=== PATIENT | male | born 1960 | race Caucasian/White ===

== ENCOUNTER 2019-07-06 07:56 | Inpatient (IN) ==
--- NOTE | 2019-06-11 14:01 | PAT Medication Instructions ---
Medication Instructions Date of Service June 11, 2019 Home Medications allopurinol 100 mg PO QPM 06/05/19 [History Confirmed 06/05/19] aspirin [Aspir-Low] 81 mg PO QPM 06/05/19 [History Confirmed 06/05/19] levothyroxine 125 mcg PO QPM 06/05/19 [History Confirmed 06/05/19] meloxicam 15 mg PO QPM 06/05/19 [History Confirmed 06/05/19] rosuvastatin [Crestor] 10 mg PO QPM 06/05/19 [History Confirmed 06/05/19] ASK your surgeon for instructions meloxicam 15 mg PO QPM 06/05/19 [History Confirmed 06/05/19] Take evening before surgery allopurinol 100 mg PO QPM 06/05/19 [History Confirmed 06/05/19] aspirin [Aspir-Low] 81 mg PO QPM 06/05/19 [History Confirmed 06/05/19] levothyroxine 125 mcg PO QPM 06/05/19 [History Confirmed 06/05/19] rosuvastatin [Crestor] 10 mg PO QPM 06/05/19 [History Confirmed 06/05/19] Other Notes If you have any questions please call us at [phone] or [phone] or [phone] or [phone]
--- NOTE | 2019-06-12 08:37 | Anesthesiology Consultation ---
Date of Service June 12, 2019 Assessment & Plan (1) Encounter for pre-operative examination: Chart Review Chart Review: Acceptable Risk for Surgery, Pending: Refer to Additional Notes / Consult section (pending preop testing (labs, EKG, CXR)) and Patient seen in Pre Admission Testing Teaching & Discussion Pre-Anesthesia Teaching/Discussion Notes: Instructed NPO after midnight before surgery,except medications with 15 cc of water. Medication instructions provided according to the PAT guidelines. History Surgery Operation Date: 07/06/19 08:50 Proposed Procedures p Left Total Knee Replacement - Rubén Young MD Height/Weight Height: 5 ft 8 in Weight: 137.8 kg Allergies Allergy/AdvReac Type Severity Reaction Status Date / Time cephalexin [From Keflex] Allergy Intermediate ITCHING Verified 06/12/19 08:40 (FEET) shellfish derived Allergy Intermediate WATERY Verified 06/05/19 10:39 EYES/ITCHING adhesive tape Allergy Mild SKIN Verified 06/05/19 10:38 IRRITATION Medications Home Medications Medication Instructions Recorded Confirmed Last Taken allopurinol 100 mg PO QPM 06/05/19 06/05/19 Unknown aspirin [Aspir-Low] 81 mg PO QPM 06/05/19 06/05/19 Unknown levothyroxine 125 mcg PO QPM 06/05/19 06/05/19 Unknown meloxicam 15 mg PO QPM 06/05/19 06/05/19 Unknown rosuvastatin [Crestor] 10 mg PO QPM 06/05/19 06/05/19 Unknown Past Medical History Medical History GERD (gastroesophageal reflux disease) controlled Gout History of diverticulitis 15+ years ago s/p bowel resection/colostomy with subsequent reversal History of high blood pressure previously on oral antihypertensives- medications since discontinued as BP's remained controlled off medications after lifestyle modifications (PCP/patient closely monitoring) Hyperlipidemia Hypothyroidism Morbid obesity Osteoarthritis Sleep apnea no device Exercise / Class Metabolic Activity III < 4 Walking/Shop/Light housework (one flight of stairs (no chest pain/no sob)) Past Family History Family History Father Family history of diabetes mellitus Past Surgical History Surgical History History of bowel resection WITH COLOSTOMY History of colostomy reversal History of herniorrhaphy RT/LEFT INGUINAL HERNIA History of tooth extraction Past Anesthesia History No Hx of Anesthesia Complications and No Family Hx of Anesthesia Complications History of PONV No Hx of PONV and No Hx of Motion Sickness Social History Smoking Status: Former smoker tobacco type: cigarettes Do You Dip or Chew Tobacco: No Smoking End Date: QUIT AT AGE 26 Hx Alcohol Use: Yes Alcohol type: beer alcohol intake frequency: a few times a month Hx Substance Use: No substance use type: does not use Review of Systems Reflux controlled. Patient denies chest pain, shortness of breath, dyspnea on exertion, cough, wheezing, palpitations. Physical Exam Vital Signs VITALS BP 153/91- Patient advised to followup with PCP regarding elevated BP. P 67 TEMP 98.2 SP02 97%RA RESP 20 PHYSICAL Full neck and c-spine range of motion. Full TMJ range of motion. TMD 4 finger breaths Mallampati Score 3 Dentition: missing sides/molars Lungs: clear throughout to auscultation Cardiac: regular rate and rhythm, no murmurs noted Spine: normal Carotid arteries: negative bruit Extremities: no edema Trimmed garber Short, thick neck Testing Laboratory Results 06/12/19 08:50 06/12/19 08:50 PT 11.1 Seconds (9.0-12.0) 06/12/19 08:50 INR 1.1 (0.9-1.1) 06/12/19 08:50 APTT 24.9 Seconds (21.0-31.0) 06/12/19 08:50 Blood Type O Positive 06/12/19 08:50 Antibody Screen NEGATIVE 06/12/19 08:50 Electrocardiogram Date: 06/12/19 Findings: + NSR @ (at69) and + RBBB Chest X-Ray Date: 06/12/19 Findings: + NAD
--- NOTE | 2019-06-12 09:20 | XRay Report ---
XR chest Pre-admission PA/Lat CLINICAL HISTORY: Preoperative chest COMPARISON STUDY: No previous studies for comparison. FINDINGS: The heart is at the upper limits of normal in size. There is no failure. There is no focal pulmonary consolidation. There are no pleural effusions. Degenerative changes are present within the dorsal spine.[ IMPRESSION: No active disease in the chest. Electronically signed by: Nickolas Leos M.D. 06/12/2019 9:18 AM
[2019-06-12 10:10] LABS: Basophils # (auto) 0.05 K/uL (0-0.2); Basophils % (auto) 0.6 %; Eosinophils # (auto) 0.97 K/uL (0-0.5); Eosinophils % (auto) 11.2 %; Hematocrit (blood only) 44.9 % (42-52); Hemoglobin 15.7 g/dL (14.0-18.0); Immature Granulocytes # (auto) 0.02 K/uL (0.00-0.02); Immature Granulocytes % (auto) 0.2 %; Lymphocytes # (auto) 2.58 K/uL (1.2-3.4); Lymphocytes % (auto) 29.9 %; Mean Corpuscular Volume 91.6 fL (80-100); Mean Platelet Volume 10.4 fL (7.4-10.4); Monocytes # (auto) 0.79 K/uL (0.11-0.59); Monocytes % (auto) 9.1 %; Neutrophils # (auto) 4.23 K/uL (1.4-6.5); Platelet Count 256 K/uL (130-400); RDW Coefficient of Variation 13.4 % (11.5-14.5); White Blood Count 8.64 K/uL (4.8-10.8)
[2019-06-12 10:17] LABS: BUN Creatinine Ratio 15.7 (10-20); Calcium 9.5 mg/dl (8.5-10.1); Creatinine Clr Calc Pharmacy 122.8 ml/min; Est GFR (African American) 108.7; Est GFR (Non-African American) 93.8; Potassium 4.4 mmol/L (3.5-5.1)
[2019-06-12 10:19] LABS: INR 1.1 (0.9-1.1); Partial Thromboplastin Ratio 0.9; Partial Thromboplastin Time 24.9 Seconds (21.0-31.0); Prothrombin Time 11.1 Seconds (9.0-12.0)
--- NOTE | 2019-06-29 13:39 | History and Physical Report ---
DATE OF ADMISSION: 07/06/2019 CHIEF COMPLAINT: Left knee pain and discomfort. HISTORY OF PRESENT ILLNESS: The patient is a 58-year-old gentleman from [place] who is referred for treatment and specifically knee replacement of his left knee. He has got a long history of left knee pain and discomfort that has gradually gotten worse over the past 5 years. He describes most of the pain medial, but some global pain. 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 He says he has got constant pain. It gets worse at the end of days. He takes anti-inflammatories as well as Tylenol with minimal relief. He would like to have his left knee fixed. PAST MEDICAL HISTORY: 1. Elevated cholesterol. 2. Sleep apnea. 3. Obesity with a BMI of 46. 4. Gastroesophageal reflux disease. 5. Hypothyroidism. PAST SURGICAL HISTORY: Includes: 1. Herniorrhaphy. 2. Colostomy and reversal for diverticulitis. ALLERGIES: ADHESIVE, ALCOHOL AND FLAGYL. CURRENT MEDICINES: Include: 1. Levothyroxine 125 mcg a day. 2. Allopurinol 100 mg a day. 3. Meloxicam 15 mg a day. 4. Rosuvastatin 10 mg a day. 5. Aspirin 81 mg a day. SOCIAL HISTORY: A 58-year-old male. He works as a billing supervisor. Does a lot of standing. He is . One drink per week. Two children. FAMILY HISTORY: Noncontributory. REVIEW OF HISTORY: Negative for diabetes, neurologic problem, vascular problems or bleeding disorders. Denies any chest pain or shortness of breath. No history of DVT or PE. PHYSICAL EXAMINATION: GENERAL: Shows a pleasant, large middle-aged male. Looks to be in pretty good health. HEENT: Benign. NECK: Supple, no lymphadenopathy. LUNGS: Clear to auscultation. HEART: Has a regular rate and rhythm. ABDOMEN: Soft, nontender, nondistended. EXTREMITIES: Grossly neurovascularly intact except as follows: Examination of the left lower extremity reveals the patient walks with bit of a limp. He has got slight varus alignment to his knee. He has got bony hypertrophy medially. He is tender over the medial joint line. Small knee effusion. Range of motion is 5 degrees short of full extension and 25 degrees of flexion. There is no instability. He has got no pain with hip motion. He is neurovascularly intact. X-RAYS: X-rays of the left knee are reviewed. It shows advanced medial compartment DJD. He has got complete loss of his medial joint space. He has got subchondral sclerosis. A little bit of tibial femoral subluxation. ASSESSMENT: A 58-year-old fairly large gentleman with advanced left knee degenerative joint disease. He has failed conservative treatment and would like to have his left knee replaced. PLAN: We are going to take him to the operating room and do a left total knee replacement. The risks and benefits of this procedure were explained to the patient including but not limited to DVT, PE, , infection, neurological injury, vascular injury, bleeding problem, pain, limited range of motion, stiffness, failure to relieve symptoms, incomplete relief of symptoms, need for further surgery in the future, etc. The patient understands and desires to proceed. Informed consent was obtained. As far as discharge plans, he is planning to be discharged home using home nursing agency.
[~2019-07-06 07:56] MED LIST: ACETAMINOPHEN 500 MG TAB PO SCH; BUPIVACAINE 0.5 % 5 MG/1 ML PF 10ML VIAL ONE; BUPIVACAINE LIPOSOME/PF 266 MG, BUPIVACAINE/EPINEPHRINE 50 ML, SODIUM CHLORIDE 0.9% 30 ... INFIL SCH; CEFAZOLIN 3000MG 72.5 ML IV SCH; FAMOTIDINE 20 MG TAB PO SCH; GABAPENTIN 600 MG DOSE PO SCH; LR 15ML/HR IV SCH; LR 60ML/HR IV SCH; METOCLOPRAMIDE HCL 10 MG TABLET PO SCH; ROPIVACAINE 0.5% 5 MG/ML 30 ML VIAL ONE; SCOPOLAMINE 1.5 MG TDSY TD SCH; TRANEXAMIC ACID 1,000 MG **IV Intra-op IV SCH
--- NOTE | 2019-07-06 08:28 | History & Physical Bridge Note ---
Date of Service July 06, 2019 History & Physical Bridge Note I have examined the patient, reviewed the History & Physical and in the interval since the performance of the History & Physical I have noted the following changes of clinical significance: no changes noted
[2019-07-06] MEDS ORDERED: MIDAZOLAM HCL 1 MG/ML 2ML VIAL ONE ×2 (08:37→09:49)
[2019-07-06] MEDS ORDERED: BUPIVACAINE/EPINEPHRINE 0.25% 1:200,000 30 ML VIAL ONE (08:38)
[2019-07-06] MEDS ORDERED: SODIUM CHLORIDE 0.9% PF 50 ML VIAL ONE (08:38)
[2019-07-06] MEDS ORDERED: BUPIVACAINE LIPOSOME 1.3% 266 MG/20 ML VIAL ONE (08:38)
[2019-07-06] MEDS ORDERED: BACITRACIN INJ 50,000 UNIT VIAL ONE (08:38)
[2019-07-06] MEDS ORDERED: fentaNYL citrate 100 MCG/2 ML VIAL ONE (08:39)
[2019-07-06] MEDS ORDERED: LIDOCAINE HCL 2% 2 ML VIAL/AMP(20MG/ML) INFIL ONE (08:41)
[2019-07-06] MEDS ORDERED: PROPOFOL IV EMULSION 10 MG/ML 20 ML VIAL IV ONE ×4 (08:41→11:22)
[2019-07-06] MEDS ORDERED: ONDANSETRON INJ 2 MG/ML 2 ML VIAL ONE (08:42)
[2019-07-06] MEDS ORDERED: HYDROmorphone INJ 1 MG/ML SYRINGE IV PRN (09:00)
[2019-07-06] MEDS ORDERED: ONDANSETRON INJ 2 MG/ML 2 ML VIAL IV PRN ×2 (09:00→12:44)
[2019-07-06] MEDS ORDERED: KETOROLAC 30 MG/ML VIAL IV PRN (09:00)
[2019-07-06] MEDS ORDERED: ePHEDrine sulfate 50 MG/ML AMP IV PRN (09:00)
[2019-07-06] MEDS ORDERED: ATROPINE SULFATE 0.1 MG/ML 10ML SYR IV PRN (09:00)
[2019-07-06] MEDS ORDERED: CEFAZOLIN 2,000 MG/15 ML IV PUSH IV ONE (09:18)
[2019-07-06] MEDS ORDERED: VANCOMYCIN HCL 1000MG/20ML VIAL ONE (10:07)
--- NOTE | 2019-07-06 11:34 | Post Operative Brief Note ---
PG Immediate Post Op with CF Date of Surgery July 06, 2019 Pre & Post Diagnosis Operation Date: 07/06/19 10:40 Pre-Op Diagnosis: LEFT KNEE DEGENERATIVE JOINT DISEASE Post-Op Diagnosis: LEFT KNEE DEGENERATIVE JOINT DISEASE I identified the patient and participated in the time-out.: Yes Procedure Operation Date: 07/06/19 10:40 Actual Procedures p Left Total Knee Replacement(Left) - Rubén Young MD Surgeon Rubén Young MD [employer] John, PAC Estimated Blood Loss 50 Findings Consistent with Post-Op Diagnosis Fluids 1000 cc Specimens Specimen Description: Permanent Specimens: A) Left Knee Bone and Tissue Drains Fitzpatrick Catheter Anesthesia Type Spinal MAC Complications none Disposition Accompanied Patient To Recovery: Yes Disposition: Recovery Room
--- NOTE | 2019-07-06 11:47 | Operative Report ---
Post Operative Report Pre & Post Diagnosis Operation Date: 07/06/19 10:40 Pre-Op Diagnosis: LEFT KNEE DEGENERATIVE JOINT DISEASE Post-Op Diagnosis: LEFT KNEE DEGENERATIVE JOINT DISEASE I identified the patient and participated in the time-out.: Yes Procedure Operation Date: 07/06/19 10:40 Actual Procedures p Left Total Knee Replacement(Left) - Rubén Young MD Surgeon Rubén Young MD [employer] John, PAC Estimated Blood Loss 50 Findings Consistent with Post-Op Diagnosis Operative findings revealed advanced left knee medial compartment DJD with grade 4 [id number] disease. He has some mild patellofemoral changes and fairly well-preserved lateral compartment. He had a moderate-sized joint effusion and a large Wu's cyst posterior medially. Fluids 1000 cc Specimens Left knee sent for pathology. Drains None. Anesthesia Type Spinal MAC Complications none Disposition Accompanied Patient To Recovery: Yes Disposition: Recovery Room Indications Patient is a 58-year-old obese male whose had a long history of left knee pain discomfort. Describes it is gotten worse over the past 5 years. Been through extensive conservative treatment which became less successful over time. X-rays show advanced medial compartment arthritis. He like to proceed with surgical tr eatment. Description of Procedure Operative implants consisted of: 1. Biomet Vanguard size 67.5 left posterior bifemoral component. 2. Biomet size 75 tibial tray. 3. 14 mm posterior stabilized polyethylene insert. 4. 31 x 8 all poly-patella. Patient is taken to the operating done from placed on the operating table supine position. Contact there is probably padded. IV antibiotics were provided by the anesthesia team. A spinal anesthetic and abductor canal block had been provided in the holding area. A Fitzpatrick catheter was placed in sterile fashion the left eye turn was then placed in the left lower extremities and prepped draped in usual sterile fashion. The left leg was elevated and exsanguinated with use of an Esmarch interspace at 3 mmHg. An anterior posterior left knee was then performed the longitudinal incision centered over the patella. Sharp lysis got through subcutaneous tissue down below the extensor mechanism. A medial parapatellar arthrotomy incision was made. Some subperiosteal dissection was carried out medially but the fat pad was resected from beneath patella tendon. Lateral patellofemoral ligament was released. Patella was subluxated laterally and the knee was flexed. The osteophytes were taken off the distal femur. The ACL and PCL were then released from the distal femur and the tibia subluxated anteriorly. The external tibial alignment jig was then placed in the interface of the tibia and adjusted 14 mm medially. Proximal tibial cut was made to remove about 3 mm of bone from the medial side. He did not have a lot of wear so I took a little extra bone. The tibia was then sized to a size 75 to try to maximize size due to his large size/stature. I want to maximize his tibial coverage. Attention drawn the femur. The distal femur was then with a sharp drill bit intramedullary canal was suction. A left 6 degree valgus cutting guide was placed but this femoral cutting block was pinned in place. This femoral cut was made to take an additional 3 mm of bone off the distal femur. Femur was then sized to a size 60 7.5P we downsized slightly. The AP cutting block was pinned parallel to the epicondylar axis which was 3 degrees of external rotation. The anterior cut, anterior chamfer, posterior cut, posterior chamfer cuts were made. Box cutting guide was placed and just slightly lateral and the box cut was made. The knee was flexed. The remnants of the medial lateral menisci were excised. The osteophytes taken off the posterior aspect the femur. Trial femoral component w as placed but the tibial tray was pinned in maximum external rotation and the drill and stem punch were used to create the defect in the proximal tip for the tibial tray. Knee was then trialed and the 14 mm insert fit most appropriately. Attention drawn the patella. The patella was cleaned of all soft tissues. Patella thickness measured 23 mm in thickness was cut down to 14. Size a size 31 patella. Locals were drilled for 31 patella. Lateral osteophyte is moved. Patella button was placed. Knee was taken through range of motion patella tracked nicely with no thumbs test. Attention drawn to placing the permanent components. All trial components were removed. Bone plug was placed in the disc femur limit blood loss put a double batch [place]os G cement was mixed. I did add an additional gram of vancomycin due to his large size, obesity, and history of multiple skin lesions. A Biomet [employer] size 67.5 left posterior bifemoral component, size 75 tibial tray, a 14 mm posterior bite polyethylene insert, and a 31 x 8 all poly-patella then cement in place. Knees brought in full extension until cement hardened. Final cement check was then performed. Pericapsular tissues were injected with total of 100 cc of combination of 20 cc of extra Exparel, 30 cc normal saline, 50 cc of quarter percent Marcaine with epinephrine. Patient did receive 1 g of tranexamic acid per the tourniquet was then let down for return 563 minutes. Hemostasis assured with electrocautery. The wound was once again irrigated. Extensor mechanism closed with combination 1 PDS suture #1 Vicryl suture in a [id number] fashion for extensor mechanism checked found to be intact the subtenons tissue then closed with 2 Dexon suture in a buried knot fashion skin was closed skin ralf. Leg was the n cleaned dried and sterile dressing composed of Xeroform, 4 x 4's, sterile cast padding, Montrell bandage were applied. Patient then transferred to the recovery room in stable condition. Patient tolerated procedure well and there were no complications. I attest to the content of the Intraoperative Record and any orders documented therein. Any exceptions are noted below.
--- NOTE | 2019-07-06 11:58 | XRay Report ---
XR knee LT 1 or 2V routine CLINICAL HISTORY: Surgical Post Op COMPARISON: X-ray study dated 05/03/2019 DISCUSSION: There are postsurgical changes of a total left knee arthroplasty and patellar resurfacing . The femoral and tibial components appear well seated. There are overlying skin ralf. There is ai r within the soft tissues consistent with recent surgery. IMPRESSION: Postsurgical changes of a total left knee arthroplasty. Electronically signed by: Nickolas Leos M.D. 07/06/2019 11:57 AM
--- NOTE | 2019-07-06 12:02 | Anesthesiology Progress Note ---
Date of Service July 06, 2019 Anesthesia Post Procedure Vital Signs Vital Signs: Temp Pulse Pulse Resp BP Pulse Ox 07/06/19 11:55 70 14 135/83 95 07/06/19 11:45 69 21 130/75 100 07/06/19 11:35 36.5 C 76 16 120/83 95 07/06/19 08:46 36.9 C 77 18 144/105 H 93 Transfer of Care Handoff Completed per policy Notes Mental Status: alert / awake / arousable Patient Amnestic to Procedure: Yes Nausea / Vomiting: adequately controlled Pain: adequately controlled Airway Patency, RR, SpO2: stable & adequate BP & HR: stable & adequate Hydration State: stable & adequate Neuraxial Anesthesia: was administered and sensory block is resolving Anesthetic Complications: no major complications apparent
[2019-07-06] MEDS ORDERED: ALUMINUM/MAGNESIUM SUSP 30 ML UDC PO PRN (12:44)
[2019-07-06] MEDS ORDERED: bisacodyL 10 MG SUPP PR PRN (12:44)
[2019-07-06] MEDS ORDERED: MAGNESIUM HYDROXIDE SUSP 30 ML UDC PO PRN (12:44)
[2019-07-06] MEDS ORDERED: TAMSULOSIN HCL 0.4 MG CAP PO PRN (12:44)
[2019-07-06] MEDS ORDERED: HYDROmorphone INJ 0.5 MG/0.5 ML SYR IV PRN (12:44)
[2019-07-06] MEDS ORDERED: METOCLOPRAMIDE HCL INJ 5 MG/ML 2 ML VIAL IV PRN (12:44)
[2019-07-06] MEDS ORDERED: NALOXONE HCL 0.4 MG/1 ML VIAL/CARP IV PRN (12:44)
[2019-07-06] MEDS: OXYCODONE HCL IR 5 MG TAB (IMMEDIATE RELEASE) PO PRN ×2 (13:19→19:29)
[2019-07-06] MEDS: SODIUM CHLORIDE 0.9% 1000ML 1,000 ML IV SCH ×2 (14:00→21:08)
[2019-07-06] MEDS: KETOROLAC 30 MG/ML VIAL IV SCH ×2 (14:54→19:30)
[2019-07-06] MEDS: ACETAMINOPHEN 500 MG TAB PO SCH ×2 (14:54→21:08)
[2019-07-06] MEDS ORDERED: CHECK SCOPOLAMINE PATCH PLACEMENT SCH (16:00)
[2019-07-06] MEDS ORDERED: TRANEXAMIC ACID / 0.7% NACL 1,000 MG/100 ML BAG IV SCH (17:38)
[2019-07-06] MEDS: ASCORBIC ACID 500 MG TAB PO SCH (18:17)
[2019-07-06] MEDS: FERROUS GLUCONATE 324 MG TAB PO SCH (18:17)
[2019-07-06] MEDS: CEFAZOLIN 2000MG 2,000 MG/15 ML SYR IV SCH (18:43)
--- NOTE | 2019-07-06 18:46 | Progress Note ---
DATE: 07/06/2019 SUBJECTIVE: A 58-year-old gentleman postop from a left knee replacement. He is doing well. Really not much pain at all yet. No chest pain or shortness of breath. Not feeling dizzy or lightheaded. OBJECTIVE: VITAL SIGNS: Temperature 36.7. Vital signs stable. GENERAL: Shows a pleasant, middle-aged male. He is sitting up in bed, looks quite comfortable. LUNGS: Clear to auscultation. HEART: Regular rate and rhythm. ABDOMEN: Soft, nontender, nondistended. EXTREMITIES: Grossly neurovascularly intact except as follows: Examination of the left lower extremity reveals the leg to be well aligned. Dressing is clean, dry and intact. He can dorsiflex and plantarflex his foot appropriately. He is neurologically intact. X-RAYS: X-rays of the left knee from recovery room are reviewed. It shows left uncemented total knee arthroplasty. Components are in good position. No signs of problems. ASSESSMENT: A 58-year-old gentleman postoperative from a left knee replacement, doing well. Pain is controlled. he is neurologically intact. PLAN: 1. DVT prophylaxis including thigh-high TEDs, SCDs, and aspirin twice a day. 2. PT/OT. Weight bear as tolerated. Left total knee protocol. 3. Pain control, doing pretty well with current pain regimen. We will use Tylenol around the clock. He can take any NSAIDs at home. We will write him for oxycodone for pain control. 4. IV antibiotics x24 hours. 5. Disposition: Plan to discharge to home with some home health once adequately stable medically recovered.
[2019-07-06] MEDS ORDERED: SENNA 8.6 MG TAB PO SCH (21:00)
[2019-07-06] MEDS: TAPENTADOL HCL ER 50 MG TABCR PO SCH (21:08)
[2019-07-06] MEDS: ASPIRIN 81 MG ECTAB PO SCH (21:09)
[2019-07-06] MEDS: DOCUSATE SODIUM 100 MG CAP PO SCH (21:09)
[2019-07-06] MEDS ORDERED: Nursing to Pharmacy Communication ONE (22:58)
[2019-07-07] MEDS: CEFAZOLIN 2000MG 2,000 MG/15 ML SYR IV SCH (02:05)
[2019-07-07] MEDS: KETOROLAC 30 MG/ML VIAL IV SCH ×3 (02:05→13:28)
[2019-07-07] MEDS: SODIUM CHLORIDE 0.9% 1000ML 1,000 ML IV SCH (03:44)
[2019-07-07] MEDS: ACETAMINOPHEN 500 MG TAB PO SCH (05:33)
[2019-07-07 05:59] LABS: Hematocrit (blood only) 37.8 % (42-52); Hemoglobin 12.5 g/dL (14.0-18.0); Mean Corpuscular Hemoglobin 30.8 pg (25-34); Mean Corpuscular Hgb Conc 33.1 g/dL (32-36); Mean Corpuscular Volume 93.1 fL (80-100); Mean Platelet Volume 9.8 fL (7.4-10.4); Platelet Count 193 K/uL (130-400); RDW Coefficient of Variation 13.3 % (11.5-14.5); RDW Standard Deviation 45.6 fL (36.4-46.3); Red Blood Count 4.06 M/uL (4.7-6.1); White Blood Count 8.67 K/uL (4.8-10.8)
[2019-07-07 06:27] LABS: BUN Creatinine Ratio 14.8 (10-20); Creatinine Clr Calc Pharmacy 98.2 ml/min; Est GFR (Non-African American) 74.2; Potassium 4.1 mmol/L (3.5-5.1)
[2019-07-07] MEDS ORDERED: LEVOTHYROXINE SODIUM 125 MCG TABLET PO SCH (06:30)
[2019-07-07 07:42] VITALS: BP 168/88; PULSE 72; TEMP 98.6
--- NOTE | 2019-07-07 08:30 | Orthopedic Progress Note ---
Date of Service July 07, 2019 Assessment & Plan (1) History of left knee replacement: Overall he is doing very well. Is not having too much pain in the left knee. He will be seen by physical therapy for ambulation and range of motion exercises. He can be discharged home later today. He is on aspirin for DVT prophylaxis. He will follow-up with orthopedics in 2 weeks. Present on Admission?: Yes Subjective Mark was seen and examined at bedside this morning. Overall he is doing very well. He has a little bit of pain in his knee but is not too bad. He has already been up and ambulating on it. He was asking to go home today. Physical Exam Musculoskeletal: On physical examination of the left knee, the dressing is jennifer an and dry. His legs out in full extension. He has active dorsiflexion and plantarflexion of his left ankle. Results & Data Vital Signs (Past 12 Hours) Vital Signs Temp Pulse Resp BP Pulse Ox 07/07/19 07:40 37.0 C 72 18 168/88 H 92 07/07/19 03:25 36.9 C 80 18 164/76 H 07/06/19 23:00 36.9 C 81 20 148/80 H 96 Laboratory Results H & H 06/12/19 07/07/19 Range/Units 08:50 05:41 Hgb 15.7 12.5 L (14.0-18.0) g/dL Hct 44.9 37.8 L (42-52) % Coagulation 06/12/19 Range/Units 08:50 INR 1.1 (0.9-1.1) PG Care Time/CCT Total # of Minutes Spent Total Time Spent with Patient: Total time spent is greater than 50% in coordination of care (as documented) at patient's floor/unit and/or counseling patient:
[2019-07-07] MEDS: ASPIRIN 81 MG ECTAB PO SCH (08:48)
[2019-07-07] MEDS: ASCORBIC ACID 500 MG TAB PO SCH (08:48)
[2019-07-07] MEDS: DOCUSATE SODIUM 100 MG CAP PO SCH (08:48)
[2019-07-07] MEDS: FERROUS GLUCONATE 324 MG TAB PO SCH (08:48)
[2019-07-07] MEDS: TAPENTADOL HCL ER 50 MG TABCR PO SCH (08:58)
[2019-07-07] MEDS: OXYCODONE HCL IR 5 MG TAB (IMMEDIATE RELEASE) PO PRN (08:58)
[2019-07-07] MEDS ORDERED: MULTIVITAMIN TAB PO SCH (09:00)
[2019-07-07] MEDS ORDERED: allopurinoL 100 MG TAB PO SCH (09:00)
[2019-07-07] MEDS ORDERED: ROSUVASTATIN CALCIUM 10 MG TAB PO SCH (09:00)
--- NOTE | 2019-07-07 10:10 | Anesthesiology Progress Note ---
Date of Service July 07, 2019 Anesthesia Post Procedure Vital Signs Vital Signs: Temp Pulse Pulse Resp BP Pulse Ox 07/07/19 07:40 37.0 C 72 18 168/88 H 92 07/07/19 03:25 36.9 C 80 18 164/76 H 07/06/19 23:00 36.9 C 81 20 148/80 H 96 07/06/19 19:20 145/91 H 07/06/19 19:17 36.5 C 75 17 94 07/06/19 15:13 36.7 C 77 17 129/80 95 07/06/19 14:08 36.7 C 68 18 130/85 94 07/06/19 13:13 36.6 C 68 17 138/87 98 07/06/19 12:50 36.6 C 69 17 147/81 H 96 07/06/19 12:15 36.7 C 71 18 126/87 95 07/06/19 11:55 70 14 135/83 95 07/06/19 11:45 69 21 130/75 100 07/06/19 11:35 36.5 C 76 16 120/83 95 Pain Intensity Left Knee: Pain Intensity: 2 Notes Mental Status: alert / awake / arousable Nausea / Vomiting: adequately controlled Pain: adequately controlled Airway Patency, RR, SpO2: stable & adequate BP & HR: stable & adequate Hydration State: stable & adequate Neuraxial Anesthesia: was administered and sensory block resolved Anesthetic Complications: no major complications apparent and Pt Satisfied with anesthetic care
[2019-07-07] MEDS ORDERED: Nursing to Pharmacy Communication ONE (13:25)
[2019-07-07] MEDS ORDERED: OXYCODONE HCL IR 5 MG TAB (IMMEDIATE RELEASE) PO ONE (13:45)
[2019-07-07 13:46] VITALS: O2SAT 87
--- NOTE | 2019-07-09 14:59 | Discharge Summary ---
Date of Service July 09, 2019 Discharge Data Allergies Allergy/AdvReac Type Severity Reaction Status Date / Time alcohol Allergy Intermediate Rash Verified 07/06/19 08:37 shellfish derived Allergy Intermediate WATERY Verified 06/05/19 10:39 EYES/ITCHING adhesive tape Allergy Mild SKIN Verified 06/05/19 10:38 IRRITATION metronidazole [From Flagyl] Allergy Mild Verified 07/06/19 09:08 Consultations 07/06/19 12:44 Consult Case Management - Discharge Planning Routine Procedures Performed Operation Date: 07/06/19 10:40 Actual Procedures p Left Total Knee Replacement(Left) - Rubén Young MD Ordered Studies 07/06/19 05:00 US - OR guided needle placemen Routine Hospital Course (1) History of left knee replacement: Discharge Plan Discharge Items Patient Disposition: Home - Home Health Services Reason For Visit: LEFT KNEE DEGENERATIVE JOINT DISEASE Discharge Diagnosis: Left Knee Replacement Activity: Per Instructions section Weightbearing: Full weightbearing Non-emergency contact: Surgeon Call non-emergency contact if: you have any medication questions Follow-up/Referrals: Thompson Friedman PA-C [Primary Care Provider] - Diet: Regular Addtl Attending Provider Instructions: ACTIVITY RECOMMENDATIONS: Physical Therapy: * You will go to physical therapy three times each week for four to six weeks after your surgery in order to regain your knee range of motion and to retrain your knee to work properly. * It is just as important to make sure you are getting your knee perfectly straight as it is to regain your knee bend. * Taking a pain pill an hour before therapy can help you have a more productive and comfortable therapy session. Home Exercise: * You were shown a series of exercises (heel props, heel slides, etc.) in the hospital. Do these exercises three to four times each day including the exercises you were shown in physical therapy. Walking: * Get up and walk several times each day. For the first four weeks, try not to stand or walk for more than one hour at a time. If you do stand or walk for more than one hour, you will not hurt anything, but your knee and leg will likely swell. * As you feel comfortable, you may change from the walker or crutches to a cane and then to independent walking. MEDICATIONS: New Medicine: * You will likely be taking one or more of these medications: 1. Oxycodone - A quick and shorter-acting pain medication. Take one to two tablets every six hours to lessen your pain. 2. Aspirin - Thins your blood to lessen the chance of forming a blood clot. * The most common side effects of pain medicine and iron are nausea and constipation. If nausea or constipation is too much of a problem or if you have any questions about your new medicines or doses, call [facility] at . We will try to help you manage these issues. "VERY IMPORTANT TO READ AND REVIEW" Pain: * The immediate post-operative period after knee replacement surgery is often quite painful. * You are given a prescription for pain medicine. You should take it, as directed, when you need it, especially before physical therapy and before going to bed. Pain that interferes with sleep is very common and can last several months. * You will likely need pain medicine for the first four to six weeks. It will not stop all of the pain. The pain will lessen and as you feel better, you may change to milder pain medicine such as Tylenol. * The most common side effects of pain medicine are nausea and constipation, so don't take more than you need. SPECIAL CARE INSTRUCTIONS: TEDs/Elastic Stockings: * The white elastic stockings help limit swelling and prevent blood clots from forming in your legs. The more you wear them, the more they work. * Wear them for six weeks after knee replacement surgery and four weeks after partial knee replacement. Prevention of Infection: * Take antibiotics one hour before any dental cleaning, dental work, urological procedure, gastrointestinal procedure or any invasive surgery in order to prevent your new joint from getting infected. * You may get the antibiotics from the doctor performing the procedure or you may call our office at before and we will call in a prescription to the pharmacy of your choice. Things to Watch For: * Drainage from the incision site that occurs more than one week after your surgery. * Severely increased knee/leg pain or swelling. * Increased redness at the incision site. * Fever above 102 degrees Fahrenheit. * Unusual chest pain or shortness of breath. * Unusual pain or burning with urination. Call [facility] at with any of the above problems or if you have any questions about your medicines or recovery. FOLLOW UP VISIT: Make an appointment to see your doctor for approximately two weeks after surgery for a progress check and staple removal by calling the office at . Pending Studies at Discharge: No Stand-Alone Forms: My [facility], Opioid Pain Management, Smoking Cessation Medications and DC Order Prescriptions: New acetaminophen [Tylenol Extra Strength] 500 mg Tablet 1,000 mg PO Q8 30 Days Qty: 180 RF: 0 aspirin [Ecotrin Low Strength] 81 mg Tablet,Delayed Release (Dr/Ec) 81 mg PO BID 45 Days Qty: 90 RF: 0 oxycodone 5 mg Tablet 5 - 10 mg PO Q6H PRN (Reason: pain) 14 Days Qty: 40 RF: 0 Continued meloxicam [Mobic] 15 mg Tablet 15 mg PO QPM RF: 0 allopurinol 100 mg Tablet 100 mg PO DAILY RF: 0 levothyroxine 125 mcg Tablet 125 mcg PO DAILY RF: 0 rosuvastatin [Crestor] 10 mg Tablet 10 mg PO DAILY RF: 0 Discontinued aspirin [Aspir-Low] 81 mg Tablet,Delayed Release (Dr/Ec) 81 mg PO DAILY RF: 0 Discharge Orders: Discharge Order (Routine); Ordered 07/07/19 Ordered By: Darron Guevara/Other Patient Handouts: Surgery Prevent DVT After Admission Data Admit Date/Time: 07/06/19 11:35 Attending Provider: Rubén Young Admit Provider: Rubén Young Primary Care Provider: Thompson Friedman Other Providers: [facility],Home Health Other Interventions: Discharge Summary Assessment (RN) Last Done: 07/07/19 11:30 DC Date/Time DO NOT enter until pt leaves facility: 07/07/19 13:40
--- NOTE | 2019-07-10 01:00 | Discharge Summary ---
ADMITTING PHYSICIAN AND SURGEON: Dr. Rubén Young. ADMITTING DIAGNOSIS: Left knee degenerative joint disease. SURGERY PERFORMED: Left total knee arthroplasty. SECONDARY DIAGNOSES: Elevated cholesterol, sleep apnea, obesity, gastroesophageal reflux disease, hypothyroidism. CONSULTS: None obtained. HISTORY AND PHYSICAL EXAMINATION: Well documented in the patient's chart. HOSPITAL COURSE: The patient was admitted on 07/06/2019, underwent total knee arthroplasty, tolerated the procedure well. There were no complications. He was transferred to the PACU postoperatively and later to the orthopedic floor for further care. He was given Ancef for antibiotic prophylaxis, EVELYN stockings, SCDs and aspirin for DVT prophylaxis. Hemoglobin, hematocrit and vital signs were monitored during his hospital stay and remained stable, did not require any blood transfusions. There were no complications. By postoperative day 1, he was tolerating a regular diet, pain was controlled with oral pain medicine. He was participating in physical therapy. By postop day 1, he was discharged home, set up with home health services, was given printed discharge instructions as well as new prescriptions for extra strength Tylenol, aspirin, and oxycodone. Continue his home medicines. Continue physical therapy, weightbearing as tolerated, EVELYN stockings. Follow up approximately 2 weeks postop or sooner if there are any problems or concerns.
== END 2019-07-07 13:40 | disposition home health service (06) | DRG 470 ==
LOC: ASU 07:56 → 3E 11:35
DX: Z88.8 Allergy status to other drugs, medicaments and biological substances; E03.9 Hypothyroidism, unspecified; E66.01 Morbid (severe) obesity due to excess calories; Z79.82 Long term (current) use of aspirin; Z79.899 Other long term (current) drug therapy; E78.5 Hyperlipidemia, unspecified; Z88.1 Allergy status to other antibiotic agents; Z87.891 Personal history of nicotine dependence; M25.462 Effusion, left knee; M71.22 Synovial cyst of popliteal space [Baker], left knee; Z91.048 Other nonmedicinal substance allergy status; E78.00 Pure hypercholesterolemia, unspecified; Z68.42 Body mass index [BMI] 45.0-49.9, adult; M17.12 Unilateral primary osteoarthritis, left knee; M10.9 Gout, unspecified; G47.30 Sleep apnea, unspecified; Z91.013 Allergy to seafood; Z79.1 Long term (current) use of non-steroidal anti-inflammatories (NSAID); Z79.890 Hormone replacement therapy